=== PATIENT | male | born 1980 | race Caucasian/White ===

== ENCOUNTER 2024-02-22 21:35 | Emergency (ER) | payer OTHER, SELFPAY ==
[2024-02-22 21:48] VITALS: BP 159/112
--- NOTE | 2024-02-22 23:48 | ED.SKININJ ---
HPI-Injury
General
Chief Complaint: Eye Problems
Source: patient
Exam Limitations: none
Time Seen by Provider: 02/22/24 23:38
Travel History
Have you had any contact with someone who has COVID-19?: No
Do you have any symptoms of coronavirus? Fever > 100 degrees, chills, cough, shortness of breath, sore throat, loss of taste or smell, muscle aches, or headache?: No
History of Present Illness-Injury
Initial Injury comments:
44-year-old male presents complaining of right eye discomfort. He was wrestling with his kids and his child poked him in the eye. He does not wear glasses or contacts. He notes occasional blurry vision. No other complaints at this time
Past History
Past History
ED Past Medical History: Other (Occasional migraine, shingles)
ED Past Surgical History: Other ([place] teeth)
Social History
Tobacco: Non-smoker
Personal:
Living: with family
Employment: Employed (sergeant of officers)
Family History
Family History: Other (Noncontributory)
Phy Exam
Physical Exam
Physical Exam:
General: Well-appearing male no acute respiratory distress
HEENT: Normocephalic right eye examined with fluorescein stain and [place] lamp. There is a 3 mm linear corneal abrasion noted in the horizontal direction overlying the medial aspect of the pupil and iris. Lids were everted there is no foreign body.
The pupil is regular in shape and reactive to light
Course
Orders/Labs/Results
Orders:
Orders
02/22/24 23:47
Gentamicin [Genoptic 0.3% Eye Drops] See Dose Instructions OPHTH NOW STA
Vital Signs
Initial and Last Documented VS:
Initial Vital Signs
Temp Pulse Resp BP Pulse Ox
98.0 F 92 19 159/112 95
02/22/24 21:48 02/22/24 21:48 02/22/24 21:48 02/22/24 21:48 02/22/24 21:48
Last Documented Vital Signs
Temp Pulse Resp BP Pulse Ox
98.0 F 92 19 159/112 95
02/22/24 21:48 02/22/24 21:48 02/22/24 21:48 02/22/24 21:48 02/22/24 21:48
MDM/Problems Addressed
Differential Diagnosis Includes:
Exam most consistent with corneal abrasion. Patient was started on gentamicin drops will be discharged with ophthalmology follow-up
*Critical Care Note
Total Time (30-74mins, 75-104mins- exclusive of procedures): Not Applicable
ED Attending Note
-
Portions of this chart may have been created with voice recognition software.� Occasional wrong word or��sound alike� substitutions may have occurred due to the inherent limitations of voice recognition software.
Discharge Plan
Departure
Patient Disposition: Home (Routine Discharge)
Date of Disposition: 02/22/24
Time of Disposition: 23:49
Patient with high blood pressure during this ER visit?: No
Discharge Problem:
Abrasion, corneal
Instructions: Corneal Abrasion (DC)
Prescriptions:
No Action
valacyclovir [Valtrex] 1,000 MG tablet
1,000 mg PO TID Qty: 21 0RF
ondansetron 4 MG tablet,disintegrating
4 mg PO QIDPRN PRN (Reason: nausea/vomiting) Qty: 20 0RF
tramadol 50 MG tablet
50 mg PO BID
ibuprofen 200 MG tablet
200 mg PO Q6HPRN PRN (Reason: headache)
oseltamivir [Tamiflu] 75 MG capsule
75 mg PO BID Qty: 10 0RF
methylprednisolone [Medrol (Dex)] 4 mg tablets,dose pack
See Rx Instructions .ROUTE .COMPLEX Qty: 21 0RF
Rx Instructions:
orally per package directions
amoxicillin-pot clavulanate 875-125 mg tablet
1 tab PO Q12H 10 Days Qty: 20 0RF
oxycodone-acetaminophen [Percocet] 5-325 mg tablet
1 tab PO Q8H PRN (Reason: pain) Qty: 7 0RF
Referrals:
Marco Gaines, DO [Family Provider] -
Activity Restrictions/Additional Instructions:
Use 1 drop every 4 hours while awake. You may apply cool compresses. Return here if worse otherwise follow-up with your eye doctor
Interventions
Interventions:
*Risk Screen - Suicide Last Done: 02/22/24 21:48
*General Assessment Last Done: 02/22/24 21:48
*Neglect/Abuse Screening Last Done: 02/22/24 21:48
ED- Fall Risk Assessment Last Done: 02/22/24 23:31
*ED COVID-19 Vaccine History Last Done: 02/22/24 21:48
Discharge Date and Time
Print Language: SLOVAK
[2024-02-23] MEDS: GENOPTIC 0.3% EYE DROPS 1 DROP OPHTH (00:02)
[2024-02-23 00:09] VITALS: BP 152/89
== END 2024-02-23 00:09 | disposition home or self-care (01) ==
LOC: EMR 21:35
PROVIDERS: EMERGENCY PHYSICIAN Emergency Medicine; FAMILY PHYSICIAN Family Medicine
DX: S05.01XA Injury of conjunctiva and corneal abrasion without foreign body, right eye, initial encounter (principal); X58.XXXA Exposure to other specified factors, initial encounter; Y93.72 Activity, wrestling
CPT/HCPCS: 99282